=== PATIENT | female | born 1940 | race Caucasian/White ===

== ENCOUNTER 2017-09-05 16:43 | Emergency (ER) | payer MEDICARE, OTHER, SELFPAY ==
--- NOTE | 2017-09-05 16:47 | ED.BACK ---
HPI - Back Pain/Injury General Chief Complaint: Back Pain/Injury Stated Complaint: PAIN FROM BACK AND HIPS Time Seen by Provider: 09/05/17 16:46 History of Present Illness HPI Narrative: 76-year-old female with history of chronic back pain here for exacerbation of her back pain. She reports that recently she went to the Orthopedics and had a steroid injection to her lower back which caused an exacerbation of her back pain. She denies any trauma to her lower back. She is ambulatory into the emergency room. She denies any loss of bladder or bowel control. She denies any other concerns or complaints. She reports increasing pain with movement of the lower back. Related Data Previous Rx's Medication Instructions Recorded cyclobenzaprine 10 mg PO TID PRN #20 tab 09/05/17 hydrocodone-acetaminophen [[place]] 1 tab PO Q4-6H PRN #10 tab 09/05/17 prednisone 40 mg PO DAILY #8 tab 09/05/17 Allergies Allergy/AdvReac Type Severity Reaction Status Date / Time No Known Drug Allergies Allergy Verified 09/05/17 16:50 Review of Systems Constitutional Denies chills, Denies fever(s), Denies lethargy and Denies weakness Eyes Denies change in vision, Denies eye discharge, Denies irritation and Denies loss of vision Cardiovascular Denies chest pain, Denies irregular heart rhythm, Denies lightheadedness, Denies palpitations and Denies orthopnea Gastrointestinal Gastrointestinal: Denies abdominal pain, Denies change in bowel habits, Denies diarrhea, Denies nausea and Denies vomiting Genitourinary Denies hematuria, Denies flank pain, Denies urinary incontinence and Denies urinary urgency Musculoskeletal Reports back pain Neurologic Denies loss of vision and Denies weakness Endocrine Denies palpitations PFSH Medical History Chronic back pain (Acute) Type 2 diabetes mellitus (Acute) Exam Const General: cooperative and well developed Nutritional Appearance: well nourished Orientation: alert, awake, oriented x3 and not confused Eyes Pupils: PERRL EOM: EOM intact bilaterally Resp Effort & Inspection: normal respiratory effort, able to speak in complete sentences, no respiratory distress and no use of accessory muscles Auscultation: clear to auscultation bilaterally, no rales, no rhonchi and no wheezes Cardio Rate: regular rate Rhythm: regular rhythm Heart Sounds: no click, no gallops, no murmurs and no rubs Back/Spine/Pelvis Thoracic/Lumbar Spine: paraspinal tenderness, lumbar spinal tenderness and other (Lumbar paraspinal spasm. Sensation intact distally. Pulses intact distally. Range of motion intact distally) MDM - Back Pain/Injury MDM Narrative Medical decision making narrative: Signs and symptoms presents as exacerbation of chronic lower back pain. She is prescribed cyclobenzaprine to help with muscle spasm. She is also prescribed short course of prednisone to help with inflammation. [id number]-[id number] Tylenol or Motrin as needed for any discomfort. She is given a small amount of French[place] for breakthrough pain use as directed she is encouraged to follow up with Orthopedics. For any worsening symptoms return to the emergency room. Course Last Vital Signs Temp 97.8 F 09/05/17 16:56 Pulse 82 09/05/17 16:56 Resp 17 09/05/17 16:56 BP 155/77 H 09/05/17 16:56 Pulse Ox 97 09/05/17 16:56 Discharge Plan Departure Patient Disposition: Home, Self-Care Clinical Impression: Low back pain Discharge Date/Time: 09/05/17 17:57 Interventions: ED Discharge Assessment Last Done: 09/05/17 17:56 Instructions: DI for Low Back Pain Activity Restrictions/Additional Instructions: Signs and symptoms presents as exacerbation of chronic back pain with sciatica. Use the prescribed cyclobenzaprine a muscle relaxer use as directed. You have also been prescribed steroids to help with anti inflammatory affects for short course also use as directed. Small moderate [place] is prescribed for breakthrough pain do not use in conjunction with the cyclobenzaprine as it can cause excessive drowsiness. Follow up with Orthopedics for further evaluation. For any worsening symptoms return to the emergency room. Prescriptions: New cyclobenzaprine 10 mg tablet 10 mg PO TID PRN (Reason: muscle spasm) Qty: 20 RF: 0 hydrocodone-acetaminophen [[place]] 5-325 mg tablet 1 tab PO Q4-6H PRN (Reason: pain) Qty: 10 RF: 0 prednisone 20 mg tablet 40 mg PO DAILY Qty: 8 RF: 0
[2017-09-05 16:50] VITALS: BMI 35.4
[2017-09-05 16:56] VITALS: BP 155/77; PULSE 82; RESP 17; TEMP 36.6; O2SAT 97
== END 2017-09-05 17:57 | disposition home or self-care (01) ==
PROVIDERS: Emergency Provider Nurse Practitioner Family; PCP Family Medicine
DX: M54.5 Low back pain (principal); G89.29 Other chronic pain
CPT/HCPCS: 99282

== ENCOUNTER → 2017-09-15 12:39 | Outpatient (CLI) | payer MEDICARE, OTHER, SELFPAY ==
--- NOTE | 2017-09-15 | DI.MRI.S_ITS ---
PROCEDURE: MR LUMBAR SPINE WO CON INDICATIONS: LUMBAR RADICULOPATHY TECHNIQUE: Noncontrast sagittal T1 spin echo and T2 fast echo, sagittal STIR, axial T1 and T2 fast spin echo through the lumbar spine. In cases with scoliosis, additional coronal T2 fast spin echo may be performed. COMPARISON: [facility], MR, L-SPINE WITHOUT CONTRAST, 08/27/2016, 15:58. [facility] [place], CR, SPINE LUMB MIN 4VW, 08/20/2016, 14:35. FINDINGS: Image quality: Excellent. Alignment and Curvature: There is normal bony alignment. Bone Marrow: Marrow is of normal overall signal. No acute vertebral body compression fractures. Spinal Cord: Conus medullaris terminates at the L1 level. Visualized cord demonstrates normal signal and size. Paraspinous Soft Tissues: No paravertebral masses. L1-L2: Mild loss disc height and disc desiccation. There is mild diffuse posterior disc bulge. The central canal is patent. Mild left foraminal stenosis. Patent right neuroforamen. No significant change. L2-L3: Preserved loss disc height. Mild disc desiccation. There is mild diffuse posterior disc bulge. The central canal is mildly narrowed. Mild left foraminal stenosis. Patent right neuroforamen. No significant change. L3-L4: Mild loss disc height and disc desiccation. The central canal is patent. No foraminal stenosis. No significant change. L4-L5: Gxgn-cw-vkelalku loss disc height and disc desiccation. There is diffuse posterior disc bulge and superimposed posterior central disc protrusion. Moderate right and mild left facet arthropathy. The central canal is mildly narrowed. No foraminal stenosis. No significant change. L5-S1: Preserved disc height and mild disc desiccation. There is mild diffuse posterior disc bulge. Mild bilateral facet arthropathy. Epidural lipomatosis. The central canal is mildly narrowed. No foraminal stenosis. No significant change. IMPRESSION: 1. Multilevel degenerative disc disease and facet arthropathy as described, most pronounced at L4-L5 with diffuse posterior disc bulge and superimposed posterior central disc protrusion. There is no significant change from last exam. 2. Mild central canal stenosis at L4-L5 and L5-S1. 3. Mild foraminal stenoses at several levels as described. Dictated by: Jayme Solorio M.D. on 09/15/2017 at 13:24 Approved by: Jayme Solorio M.D. on 09/15/2017 at 16:30
== END ==
PROVIDERS: PCP Family Medicine; Visit Provider Physical Medicine & Rehabilitation Pain Medicine
DX: M51.36 Other intervertebral disc degeneration, lumbar region (principal); M47.26 Other spondylosis with radiculopathy, lumbar region; M51.26 Other intervertebral disc displacement, lumbar region; M48.061 Spinal stenosis, lumbar region without neurogenic claudication; M48.07 Spinal stenosis, lumbosacral region; M99.73 Connective tissue and disc stenosis of intervertebral foramina of lumbar region
CPT/HCPCS: 72148

== ENCOUNTER → 2018-10-11 17:30 | Outpatient (CLI) | payer MEDICARE, OTHER, SELFPAY ==
--- NOTE | 2018-10-11 | DI.MRI.S_ITS ---
PROCEDURE: MR LUMBAR SPINE WO CON INDICATIONS: LUMBAR SPINAL STENOSIS TECHNIQUE: Noncontrast sagittal T1 spin echo and T2 fast echo, sagittal STIR, axial T1 and T2 fast spin echo through the lumbar spine. In cases with scoliosis, additional coronal T2 fast spin echo may be performed. COMPARISON: [facility], MR, L-SPINE WITHOUT CONTRAST, 08/27/2016, 15:58. [facility], MR, MR LUMBAR SPINE WITHOUT CONTRAST, 04/24/2009, 10:48. [facility], MR, MR LUMBAR SPINE WO CON, 09/15/2017, 12:51. FINDINGS: Image quality: Excellent. Alignment and Curvature: There is normal bony alignment. Bone Marrow: Marrow is of normal overall signal. No acute vertebral body compression fractures. Spinal Cord: Conus medullaris terminates at the L1 level. Visualized cord demonstrates normal signal and size. Paraspinous Soft Tissues: No paravertebral masses. Discs: Mild to moderate disc dessication. L1-L2: No disc bulge, spinal stenosis or foraminal narrowing. L2-L3: Mild disc bulge including left foraminal component. No spinal stenosis. Mild left foraminal narrowing with facet hypertrophy. L3-L4: Mild disc bulge including left foraminal component. No spinal stenosis. Minimal left foraminal narrowing with facet hypertrophy. Minimal epidural lipomatosis. L4-L5: Mild disc bulge, including small posterior central protrusion. There is mild spinal stenosis. Mild to moderate right foraminal narrowing. Mild facet hypertrophy. L5-S1: Mild disc bulge with moderate spinal stenosis. No foraminal narrowing. Mild facet hypertrophy. IMPRESSION: 1. Early degenerative changes, without interval progression. 2. Foraminal narrowing is noted, most prominent at L4-5. Dictated by: Jaelyn Mccoy M.D. on 10/12/2018 at 15:12 Approved by: Jaelyn Mccoy M.D. on 10/12/2018 at 15:42
== END ==
PROVIDERS: PCP Family Medicine; Visit Provider Orthopaedic Surgery
DX: M48.061 Spinal stenosis, lumbar region without neurogenic claudication (principal); M47.816 Spondylosis without myelopathy or radiculopathy, lumbar region; M47.817 Spondylosis without myelopathy or radiculopathy, lumbosacral region
CPT/HCPCS: 72148

== ENCOUNTER → 2021-03-04 13:22 | Outpatient (CLI) | payer MEDICARE, OTHER, SELFPAY ==
--- NOTE | 2021-03-04 | DI.MRI.S_ITS ---
PROCEDURE: MR LUMBAR SPINE WO CON INDICATIONS: Spinal stenosis, thoracic region AND LUMBAR TECHNIQUE: Noncontrast sagittal T1 spin echo and T2 fast echo, sagittal STIR, axial T1 and T2 fast spin echo through the lumbar spine. Axial and oblique coronal T1 spin echo and STIR through the sacrum. In cases with scoliosis, additional coronal T2 fast spin echo may be performed. COMPARISON: [facility], MR, MR LUMBAR SPINE WO CON, 10/11/2018, 18:03. FINDINGS: Image quality: Excellent. Alignment and Curvature: There is normal bony alignment. Bone Marrow: Marrow is of normal overall signal. No acute vertebral body compression fractures. No sacral fractures. Spinal Cord: Conus medullaris terminates at the L1 level. Visualized cord demonstrates normal signal and size. Paraspinous Soft Tissues: No paravertebral masses. T12-L1: Normal appearance. L1-L2: Normal appearance. L2-L3: Mild disc space narrowing and circumferential disc bulge associated with mild central but no foraminal stenosis. L3-L4: Mild disc space narrowing and circumferential disc bulge associated with mild central stenosis. No foraminal stenosis. L4-L5: Mild disc space narrowing and circumferential disc bulge asymmetric to the right results in lateral recess effacement and mild central stenosis. No foraminal stenosis. L5-S1: Mild disc space narrowing and circumferential disc bulge without central or foraminal stenosis. Mild degenerative endplate changes present. IMPRESSION: 1. Multilevel degenerative disc disease and arthropathy results in effacement of the right lateral recess at L4-5, slightly increased from the prior. Approved by: Gideon Torres M.D. on 03/04/2021 at 16:06
--- NOTE | 2021-03-04 | DI.MRI.S_ITS ---
PROCEDURE: MR THORACIC SPINE WO CON INDICATIONS: Spinal stenosis, thoracic region AND LUMBAR TECHNIQUE: Noncontrast sagittal T1 spine echo and T2 fast spin echo, sagittal STIR, axial T1 and T2 fast spin echo through the thoracic spine. COMPARISON: None. FINDINGS: Image quality: Excellent. Alignment and Curvature: There is moderate diffuse thoracic kyphosis and otherwise normal bony alignment. Bone Marrow: Marrow is of normal overall signal. No acute vertebral body compression fractures. Mild reactive signal throughout the endplates of the thoracic spine. Spinal Cord: Visualized spinal cord is normal in size . Within the central substance of the cord extending from the T6 level inferiorly to the T11 level, there is a small high T2 intensity focus measuring roughly 2 mm in diameter. Paraspinous Soft Tissues: No paravertebral masses. Disc space levels: There is multilevel disc desiccation throughout the thoracic spine. At T7-T8, there is a left paracentral protrusion/osteophyte, causing mild canal stenosis and mild cord flattening. At T9-T10, there is a right paracentral protrusion, causing mild canal stenosis and minimal cord flattening. IMPRESSION: 1. Diffuse thoracic kyphosis with superimposed protrusions/osteophyte within the mid/lower thoracic spine as described above, associated with mild canal stenosis and minimal cord flattening. 2. Mid/lower thoracic cord syrinx. Dictated by: Nai Anaya M.D. on 03/04/2021 at 16:13 Approved by: Nai Anaya M.D. on 03/04/2021 at 16:51
== END ==
PROVIDERS: PCP Family Medicine; Referring Provider Physical Medicine & Rehabilitation; Visit Provider Physical Medicine & Rehabilitation
DX: M48.062 Spinal stenosis, lumbar region with neurogenic claudication (principal); M48.04 Spinal stenosis, thoracic region; M40.204 Unspecified kyphosis, thoracic region; M51.24 Other intervertebral disc displacement, thoracic region; M51.36 Other intervertebral disc degeneration, lumbar region
CPT/HCPCS: 72146; 72148

== ENCOUNTER → 2021-05-03 10:51 | Outpatient (CLI) | payer MEDICARE, OTHER, SELFPAY ==
[2021-05-03 14:04] LABS: COVID19 -Nasal RAPID Negative (Negative)
== END ==
PROVIDERS: PCP Family Medicine; Visit Provider Nurse Practitioner Critical Care Medicine
DX: Z01.812 Encounter for preprocedural laboratory examination (principal); Z20.822 Contact with and (suspected) exposure to COVID-19
CPT/HCPCS: 87635; C9803

== ENCOUNTER 2021-05-06 05:45 | Day surgery (SDC) | payer MEDICARE, OTHER, SELFPAY ==
[2021-05-01 11:55] VITALS: BMI 35.7
[2021-05-06] VITALS (9 sets, daily range): BP systolic 106–138; BP diastolic 42–71; PULSE 72–89; RESP 12–19; TEMP 36.7–37.1; O2SAT 96–100; BMI 35.7
[2021-05-06] MEDS: LACTATED RINGERS 1,000 ML 42 ML IV (07:22)
--- NOTE | 2021-05-06 07:40 | PM.PREOP ---
Pre-operative Note COVID-19 COVID-19 status: Negative Result date/Date tested (Pos, Neg/Pending): 05/05/21 Interval Note History & Physical reviewed/Exam performed by Physician: Yes Changes to H&P: No
[2021-05-06] MEDS: CEFAZOLIN 2 GM/20 ML SYRINGE IV (08:08)
--- NOTE | 2021-05-06 08:19 | SUR.OPER ---
Prone on spine table, head in foam head support, padded chest and pelvic supports, gel pad at knees, lower legs supported by pillows; nipples, genitalia and toes free of pressure, arms secured on foam padded arm boards at <90 degrees abduction. Tape over blanket at thigh secured to table.
[2021-05-06] MEDS: BUPIVACAINE 0.25% (PF) 30 ML, EPINEPHrine 0.3 MG INJ (08:25)
[2021-05-06] MEDS: methylPREDNISolone acet DEPO 40 MG/ML VIAL IM (08:28)
--- NOTE | 2021-05-06 08:51 | DI.RAD.S_ITS ---
PROCEDURE: XR LUMBAR SPINE 2-3V INDICATIONS: L4-5 MICRODISCECTOMY TECHNIQUE: Fluoroscopic images were obtained during an operative procedure and submitted for interpretation following the completion of the procedure. COMPARISON: [facility], , MR LUMBAR SPINE WO CON, 03/04/2021, 14:22. FINDINGS: These fluoroscopic images were performed for intraoperative localization. On these images, a surgical intermittent can be seen posteriorly overlying the L4-L5 level. Please correlate with intraoperative findings. IMPRESSION: Normal intraoperative examination. Dictated by: Juancho Gold M.D. on 05/06/2021 at 10:04 Approved by: Juancho Gold M.D. on 05/06/2021 at 10:05
--- NOTE | 2021-05-06 09:14 | P.HP_ITS ---
History of Present Illness History of Present Illness Date Patient Seen: 05/06/21 Time Patient Seen: 07:30 Date of Onset of Symptoms: 10/29/20 Chief complaint: LUMBAR DISCECTOMY Narrative: Ms. Antoine is a 80 yo F with hx of right leg pain, weakness and pain for over 6 months. She failed conservative care with pain affecting her ability to perform activity of daily living. Patient History Medical History (Updated 05/01/21 @ 12:40 by Yola Sellers RN) Ankle fracture, left (03/2021) Anxiety Chronic back pain Depression HLD (hyperlipidemia) HTN (hypertension) Hypothyroid MICKIE (obstructive sleep apnea) Type 2 diabetes mellitus Surgical History (Updated 05/06/21 @ 09:13 by Poly Lara PA-C) History of hysterectomy Hx of appendectomy Hx of cholecystectomy Hx of tonsillectomy S/P patent foramen ovale closure Family & Social History Family History Mother Gallstones Father Hypertension Brother Diabetes mellitus Social History: household members spouse Tobacco & Substance use: Smoking Status Former smoker alcohol intake former Substance Use Type does not use Meds Home Medications and Allergies Home Medications Medication Instructions Recorded Confirmed Type carvedilol 3.125 mg tablet 6.25 mg PO BID 12/07/17 05/06/21 History insulin aspart U-100 100 unit/mL 15 unit SUBCUT TID ml 12/07/17 05/06/21 History (3 mL) subcutaneous pen (Novolog Flexpen U-100 Insulin aspart) insulin glargine 100 unit/mL (3 50 unit SUBCUT QPM ml 12/07/17 05/06/21 History mL) subcutaneous pen (Lantus Solostar U-100 Insulin) levothyroxine 137 mcg tablet 137 mcg PO DAILY 12/07/17 05/06/21 History (Synthroid) lisinopril 20 mg tablet 20 mg PO BID 12/07/17 05/01/21 History amlodipine 10 mg tablet 5 mg PO DAILY 05/01/21 05/06/21 History aspirin 81 mg tablet,delayed 81 mg PO DAILY 05/01/21 05/01/21 History release (Aspirin Low Dose) duloxetine 60 mg capsule,delayed 60 mg PO DAILY 05/01/21 05/01/21 History release gabapentin 300 mg capsule 600 mg PO QID 05/01/21 05/06/21 History simvastatin 40 mg tablet 40 mg PO DAILY 05/01/21 05/01/21 History oxycodone 5 mg tablet 5 mg PO Q4-6H PRN #20 tab 05/06/21 Rx Allergies Allergy/AdvReac Type Severity Reaction Status Date / Time No Known Drug Allergies Allergy Verified 05/06/21 07:02 Review of Systems Review of Systems ROS: Yes All systems reviewed with the patient and are negative except as oth erwise documented Exam Vital Signs (past 8 hours): - 05/06/21 07:11 Temperature 98.2 F Pulse Rate 72 Respiratory Rate 16 Blood Pressure 134/62 Pulse Oximetry 98 Oxygen Delivery Method Room Air Neuro Other: + straight leg raise to RLE, sensibility decreased to R L4, L5 dermatome, motor strength 4/5 in R TA and EHL. Assessment & Plan Assessment & Plan narrative: Risks and benefits of surgery was discussed. Risks for surgery include but not limited to bleeding, infection, nerve/dura injury, need for additional procedure, persisting pain. Patient understands and would like to proceed with surgery. I scheduled her for L4-5 right microdiscectomy. Time Spent With Patient Critical Care time: I spent a total of [] minutes of critical care time on this patient's care today; this time is exclusive of procedural time.
--- NOTE | 2021-05-06 09:17 | P.OP_ITS ---
Operative Date/Time/Diagnoses Date of procedure: 05/06/21 Time of procedure: 07:45 Pre-op diagnosis: 1. L4-5 spinal stenosis 2. L4-5 disc herniation with radiculopathy Post-op diagnosis: same Procedure & Clinicians Procedure: 1. L4-5 right hemilaminectomy and microdiscectomy 2. Utilization of microsurgical technique and operating microscope Same procedure as scheduled: Yes Indications: Patient has been having chronic back pain and worsening lumbar radiculopathy. Patient failed multiple conservative management with worsening pain weakness and numbness in her lower extremity. Patient has been having difficulty performing activity of daily living. After discussing risks benefits of treatment options, patient elected proceed with surgery. Surgeon: Maria Topete Interior Surface Insulation Worker: Poly Lara Click Yes if Unassisted: No Anesthesia Type: General Operative Notes Closure Type: primary Specimen(s): none sent Estimated Blood Loss (mL): 5 Blood products transfused: none Procedure in detail: Patient was seen in the preoperative area. Risks and benefits of the surgery was discussed with the patient. Informed consent was obtained from the patient and placed in the chart. Surgical site was marked. Patient was taken to the operative room. General anesthesia was administered. Prophylactic antibiotic was given to the patient less than 30 min before the incision was made. Patient was placed into a prone position on the Adrian table. Patient's back was then prepped and draped in the sterile fashion. Time-out was performed at this time. Using AP and lateral C-arm imaging the interval between L4-5 was identified and marked on patient's back. A 1 inch incision 1 in from midline was made on the right side. The fascia was incised in line with skin incision. Globus MARS retractors was placed inside the incision and docked onto the L4 lamina. Using microsurgical technique and operating microscope, a L4 laminotomy was performed using a Kerrison rongeur. Liagamentum flavum was resected at the site of the laminotomy. The disc space at L4-5 was identified. Microdiscectomy was performed by incising the annulus with #11 blade. Microcurettes and pituitary was used to removed herniated disc fragments of disc from the epidural space. Patient was found have significant lateral recess stenosis along with epidural adhesion. Careful decompression was performed by removing portion of the medial facet to further decompress the epidural space the lateral recess. The lateral recess was fully decompressed after decompression was completed. After the microdiskectomy was completed, the area medial lateral superior and inferior to the area of the microdiskectomy was inspected and explored using a micro curette. No other impinging structure was identified. The wound was then irrigated with sterile normal saline. 40 mg Depo-Medrol was placed into the epidural space. The deep fascia was closed with 1-0 Vicryl. The subcutaneous tissue was closed with 2-0 Vicryl. The skin was closed with skin mo. Patient tolerated the procedure well. There were no complications. Patient was transferred recovery room in stable condition. Complications: none Post-operative Condition: stable Disposition: PACU Plan for aftercare: Discharge to home
[2021-05-06] MEDS: INSULIN REGULAR 100 UNIT/ML 3 ML VIAL SUBCUT (09:35)
[2021-05-06] MEDS: ACETAMINOPHEN 325 MG TABLET 975 MG PO (09:48)
[2021-05-06] MEDS: OXYCODONE IR 5 MG TABLET PO (09:49)
[2021-05-06] MEDS: hydrOXYzine 50 MG/ML INJ 25 MG IM (09:53)
--- NOTE | 2021-05-06 11:27 | SUR.PHASEII ---
Pt. is ready for discharge. dressed and resting . call light within reach will d/c when daughter arrives [facility]ss. [facility] cdi
--- NOTE | 2021-05-06 13:00 | SUR.PHASEII ---
Daughter called, ready for shredder picker, pt ready to go, escorted from unit to car, d/c instructions discussed with daughter, she voiced an understanding, pt left in stable condition.
== END 2021-05-06 12:15 | disposition home or self-care (01) ==
LOC: OR 05:48
PROVIDERS: PCP Family Medicine; Referring Provider Physical Medicine & Rehabilitation; Visit Provider Orthopaedic Surgery Orthopaedic Surgery of the Spine
PROC: (CPT 63030; principal; 2021-05-06 07:45)
DX: M51.16 Intervertebral disc disorders with radiculopathy, lumbar region (principal); E11.9 Type 2 diabetes mellitus without complications; G47.33 Obstructive sleep apnea (adult) (pediatric); E03.9 Hypothyroidism, unspecified; I10 Essential (primary) hypertension; E78.5 Hyperlipidemia, unspecified; F32.9 Major depressive disorder, single episode, unspecified; F41.9 Anxiety disorder, unspecified; Z79.4 Long term (current) use of insulin; Z98.890 Other specified postprocedural states; M48.061 Spinal stenosis, lumbar region without neurogenic claudication; G96.12 Meningeal adhesions (cerebral) (spinal)
CPT/HCPCS: 63030; 72100; 76000; 82962; J0171; J0690; J1030; J1100; J2405; J2704; J3010; J3410